=== PATIENT | female | born 1975 | race Caucasian/White ===

== ENCOUNTER 2016-04-14 10:48 | Day surgery (SDC) | payer MEDICARE, BC, OTHER ==
--- NOTE | ~2016-04-14 | OP ---
Record Of Operation [facility] [address] [place]. [address] NAME: DARLIN DURON : 71 STATUS : [facility] UNIT#: [id number] AGE: 40 ADM/REG DATE : 04/14/16 MR#: [id number] REPORT SERV DATE: 04/14/16 DICTATED BY: KAN ZURITA JR. DATE: 04/14/16 REPORT STATUS : Draft TRANSCRIBED BY: GABRIELE DATE: 04/14/16 DATE OF PROCEDURE: 04/14/2016 PREOPERATIVE DIAGNOSIS: Malfunctioning left PermCath catheter. POSTOPERATIVE DIAGNOSIS: Malfunctioning left PermCath catheter. OPERATIONS: To exchange for longer PermCath catheter insertion. SURGEON: Kan Zurita M.D. HISTORY: This is a 40-year-old white female, who is dialyzing with a left PermCath catheter. She thinks it became slightly pulled out. She then had problems with dialysis yesterday. PROCEDURE: The patient was placed on operating table. The left shoulder is prepped and draped in a sterile manner as possible. The small neck incision was opened. The graft was encircled with a vessel loop. The graft was then clamped. I then pulled out the distal aspect of the PermCath catheter. I then put a wire through the old end of the PermCath catheter. It was confirmed to be in the right side of the heart with fluoroscopy. The rest of the PermCath catheter was then removed. A new PermCath catheter was brought through the stab wound below the left clavicle, up into the small neck incision, and down into the Tear- Away Introducer. It went down to the right side of the heart without difficulty. It irrigated well. The fluoro machine confirmed no kinking. The catheter was irrigated with heparinized saline, and sutured into place. The patient tolerated the procedure well and was taken back to recovery room in fair condition. No intraoperative complications. ESTIMATED BLOOD LOSS: Was negligible. DF/GABRIELE Kan Zurita Jr., M.D. / [id number] CC: Elissa Tovar Jr. Germain, MD
[~2016-04-14 10:48] MED LIST: ABX IV; APRES10B PO; ASAB PO; AURYXIA210 MG PO; CARDCD240 PO; COREG12 PO; COREG6 PO; CRESTOR20 MG PO; CUBICIN500 MG IV; ECHINACEA PO; KLOR-CON M2020 MEQ PO; L40 PO; LEVOTHYROXIN125 MCG PO; MULTIPLE VIT PO; PCET PO; PHOSLO PO; PLAVIX PO; PRIN20 PO; PROVHFA INH; SYN125 PO; SYNTHROID PO; TUMSROLL PO; VELPHORO 500 MG PO; VITA10 PO; VITC500 PO; [UNRECOGNIZED DRUG - REMARK] IV; [UNRECOGNIZED DRUG - REMARK] PO
[2016-04-14 12:07] LABS: BASOPHILS 0.2 %; BASOPHILS ABSOLUTE 0.02 10/3/uL (0.0-0.16); EOSINOPHILS 2.4 %; EOSINOPHILS ABSOLUTE 0.22 10/3/uL (0.0-0.53); IMMATURE GRANULOCYTES 0.3 %; IMMATURE GRANULOCYTES ABSOLUTE 0.03 10/3/uL (0.0-0.11); LYMPHOCYTES 16.7 %; LYMPHOCYTES ABSOLUTE 1.53 10/3/uL (0.67-4.30); MEAN CORPUS HGB CONC 32.4 g/dL (32.0-36.0); MEAN CORPUSCULAR VOLUME 98.9 fL (80-100); MEAN PLATELET VOLUME 8.8 fL (9.2-13.0); MONOCYTES 4.7 %; MONOCYTES ABSOLUTE 0.43 10/3/uL (0.21-1.20); NEUTROPHILS 75.7 %; NEUTROPHILS ABSOLUTE 6.93 10/3/uL (2.02-8.40); PLATELET COUNT 236 10/3/uL (150-400); RBC DISTRIBUTION WIDTH 13.6 % (12.0-16.0)
[2016-04-14 12:08] LABS: HEMATOCRIT 35.2 % (36.0-48.0); HEMOGLOBIN 11.4 g/dL (12.0-16.0); MANUAL DIFF NO %; RED CELL COUNT 3.56 10/6/uL (4.0-5.6); WHITE BLOOD CELLS 9.2 10/3/uL (4.5-10.5)
[2016-04-14 12:13] LABS: INTERNATIONAL NORMAL RATI 1.4 UNITS (-)
[2016-04-14 12:14] LABS: PROTIME (NOT ORD) 17.3 SEC (12.0-14.5)
[2016-04-14 12:20] LABS: ASCORBIC ACID (UR NOT ORDER) NEG (NEG); BILIRUBIN, URINE NEGATIVE (NEG); KETONE, URINE NEGATIVE (NEG); LEUKOCYTE ESTERASE(NOT OR NEG (NEG); WBC (NOT ORDERED) (RFLEX) 1 (0-5)
[2016-04-14 12:20] LABS: A/G RATIO 1.4 (0.7-1.9); ALBUMIN 4.5 G/DL (3.5-5.0); ALKALINE PHOSPHATASE 164 U/L (45-117); BUN (BLOOD UREA NITROGEN) 98 MG/DL (6-23); CALCIUM, SERUM 8.8 MG/DL (8.5-10.4); CHLORIDE, SERUM 104 MMOL/L (96-112); CO2 (CARBON DIOXIDE) 23 MMOL/L (24-34); CREATININE 9.33 MG/DL (0.55-1.02); GFR AFRICAN AMERICAN 5 ML/MIN (>=60); GFR NON AFRICAN AMERICAN 5 ML/MIN (>=60); GLOBULIN 3.3 G/DL (2.5-4.1); GLUCOSE, SERUM 89 MG/DL (60-99); POTASSIUM, SERUM 4.2 MMOL/L (3.5-5.3); SGOT(AST) 20 U/L (5-40); SGPT(ALT) 79 U/L (5-65); SODIUM, SERUM 141 MMOL/L (135-148); TOTAL BILIRUBIN 0.5 MG/DL (0-1.2); TOTAL PROTEIN 7.8 G/DL (6.0-8.5)
== END 2016-04-14 19:57 | disposition home or self-care (01) ==
LOC: SDC 10:48
PROVIDERS: Surgery
PROC: 02H633Z Insertion of Infusion Device into Right Atrium, Percutaneous Approach (ICD-10-PCS; 2016-04-14)
PROC: B214YZZ Fluoroscopy of Right Heart using Other Contrast (ICD-10-PCS; 2016-04-14)
PROC: 02PA03Z Removal of Infusion Device from Heart, Open Approach (ICD-10-PCS; principal; 2016-04-14 12:45)
DX: T82.41XA Breakdown (mechanical) of vascular dialysis catheter, initial encounter (principal); I12.0 Hypertensive chronic kidney disease with stage 5 chronic kidney disease or end stage renal disease; N18.6 End stage renal disease; J45.909 Unspecified asthma, uncomplicated; Z99.2 Dependence on renal dialysis; Z88.1 Allergy status to other antibiotic agents; Z79.899 Other long term (current) drug therapy
CPT/HCPCS: 36581; 77001; 80053; 81001; 84703; 85025; 85610; 93005; C1750; C1769; J0690; J2250; J3010